=== PATIENT | male | born 1960 | race Caucasian/White ===

== ENCOUNTER 2018-12-30 20:47 | Emergency (ER) | payer SELFPAY ==
[~2018-12-30] VITALS: Ht 172.7 cm; Wt 78.0 kg
[~2018-12-30 20:47] MED LIST: TRAM-385
[2018-12-30 21:00] VITALS: BP 134/84
[2018-12-30] MEDS ORDERED: TAMS-11 PO (21:31)
[2018-12-30] MEDS ORDERED: KETOROLAC 30 MG/1 ML ONE (22:09)
--- NOTE | 2018-12-30 22:12 | NUR ---
PT MEDICATED FOR PAIN PER MAR. AWAITING D/C INSTRUCTIONS AT THIS TIME.
--- NOTE | 2018-12-30 22:13 | NUR ---
PT D/C WITH D/C SUMMARY. ALL QUESTIONS ANSWERED. PT AMBULATES TO REGISTRATION DESK WITH STEADY GAIT FOR D/C HOME. PT DENIES ANY OTHER NEEDS PERTAINING TO THIS VISIT.
[2018-12-30] MEDS ORDERED: KETOROLAC 30 MG/1 ML IM ONE (22:30)
== END 2018-12-30 22:15 | disposition home or self-care (01) ==
LOC: ED 22:09
DX: M25.571 Pain in right ankle and joints of right foot (principal); M79.661 Pain in right lower leg; H93.11 Tinnitus, right ear
CPT/HCPCS: 70450; 99284

== ENCOUNTER 2019-03-10 07:55 | Inpatient (IN) | payer SELFPAY ==
[~2019-03-10] VITALS: Ht 172.7 cm; Wt 74.3 kg
[~2019-03-10 07:55] MED LIST changes: +TAMS-11 PO
--- NOTE | 2019-03-10 08:00 | NUR ---
PT ARRIVED AMBULATORY TO ROOM 4 WITH MOM. PT DRESSED IN GOWN AND RESTING COMFORTABLY ON GURNEY. PT AAO X 4, VSS, CALL LIGHT WITHIN REACH. PT C/O NASUEA, VOMITTING, DIARRHEA, HEADACHE, BODY ACHES, FEVER, CHILLS, SOB, DIZZINESS.
--- NOTE | 2019-03-10 08:18 | NUR ---
[employer] HELPER AT BEDSIDE FOR EXAM.
[2019-03-10] MEDS ORDERED: ACETAMINOPHEN 500 MG TABLET PO ONE (08:30)
[2019-03-10] MEDS ORDERED: ACETAMINOPHEN 325 MG TABLET PO ONE (08:30)
[2019-03-10] MEDS ORDERED: SODIUM CHLORIDE 0.9% 1,000ML IVBOLUS ONE ×2 (08:30→16:00)
[2019-03-10] MEDS ORDERED: ACETAMINOPHEN 500 MG TABLET ONE (08:43)
[2019-03-10 09:08] LABS: MEAN CORPUSCULAR HEMOGLOBIN 28.5 pg (27.5-34.5); MEAN CORPUSCULAR VOLUME 86.4 fL (81-97); MEAN PLATELET VOLUME 8.3 fL (7.4-10.4); PLATELET COUNT 146 x10^3/uL (130-400); RED CELL DISTRIBUTION WIDTH 14.2 % (9.4-14.8)
[2019-03-10 09:19] LABS: ALBUMIN 2.7 g/dL (3.4-5.0); ANION GAP 10 mmol/L (5-15); CHLORIDE 104 mmol/L (98-107); CREATININE 1.19 mg/dL (0.7-1.3)
--- NOTE | 2019-03-10 09:21 | NUR ---
PT RESTING COMFORTABLY ON GURNEY. 1 L NC AND SATTING 98%, VSS, BOLUS INFUSING, PT AAO X 4, CALL LIGHT WITHIN REACH, MOM AT BEDSIDE.
[2019-03-10 09:22] LABS: TROPONIN I < 0.015 ng/mL (0.000-0.045)
[2019-03-10 09:25] LABS: RAPID INFLUENZA A Negative (Negative); RAPID INFLUENZA B Negative (Negative)
[2019-03-10 09:30] LABS: MD YES
[2019-03-10] MEDS ORDERED: CEFTRIAXONE PMX 1GM/50ML 50 ML IV ONE ×2 (09:30→14:30)
[2019-03-10] MEDS ORDERED: AZITHROMYCIN 500 MG in SODIUM CHLORIDE 0.9% 250 ML IV ONE (09:30)
[2019-03-10 09:34] LABS: <PLATELET ESTIMATE> ADEQUATE; <PLT MORPHOLOGY> NORMAL PLT MORPH; <RBC MORPHOLOGY> NORMAL; BAND#(MANUAL) 3.56 x10^3/uL; BANDS%(MANUAL) 28 % (0-7); LYMPH#(MANUAL) 0.38 x10^3/uL (1-3.4); LYMPHS% (MANUAL) 3 % (22-44); METAMYELOCYTES# (MANUAL) 0.13 x10^3/uL (0-0); METAMYELOCYTES% (MANUAL) 1 % (0-1); MONOS#(MANUAL) 0.13 x10^3/uL (0.3-2.7); MONOS% (MANUAL) 1 % (2-9); SEG#(MANUAL) 8.51 x10^3/uL (1.8-6.8); SEGS% (MANUAL) 67 % (42-75)
[2019-03-10 09:35] LABS: PMNS WITH VACUOLES 1+
[2019-03-10] MEDS ORDERED: CEFTRIAXONE PMX 1GM/50ML 50 ML ONE (10:01)
--- NOTE | 2019-03-10 10:14 | NUR ---
MD AWARE OF PT'S SEPSIS SCORE, BLOOD CX ORDERED AND DRAWN, IV ABX ADMINISTERED AFTER BC X 2. PT'S TEMP 98.3, VSS.
--- NOTE | 2019-03-10 11:06 | NUR ---
PT RESTING IN GURNEY, MOM AT BEDSIDE, VSS, ADMIT ROOM BEING CLEANED.
--- NOTE | 2019-03-10 12:36 | NUR ---
PT SLEEPING. FALL PRECUATIONS IN PLACE.
--- NOTE | 2019-03-10 13:25 | NUR ---
BREAK RN: PT STATED THAT HE WANTED TO LEAVE AMA, WHEN RN WAS ABLE TO COME TO ROOM TO ASK PT WHAT WAS WRONG, PT STATED THAT HE WAS HUNGRY. MEAL TRAY ORDERED, ALL MONITORS WHICH PT HAD REMOVED RE-ATTACHED, PT REPORTS NO OTHER NEEDS AT THIS TIME, (PILLOW, BLANKET & HOSPITAL BED OFFERED, PT DECLINED ALL). PT IN BED, NAD, MEAL TRAY ORDERED, CALL LIGHT IN REACH, WCTM.
--- NOTE | 2019-03-10 14:23 | NUR ---
PT TO TRANSFER WITH TECH TO ROOM 537. RPEORT GIVEN TO HUGH VIEYRA.
[2019-03-10] MEDS ORDERED: DOCUSATE 100 MG CAPSULE PO PRN (14:30)
[2019-03-10] MEDS ORDERED: hydrALAzine 20 MG/ML, 1ML IVPush PRN (14:30)
[2019-03-10] MEDS ORDERED: ONDANSETRON 2MG/ML, 2ML IVPush PRN (14:30)
[2019-03-10] MEDS ORDERED: ONDANSETRON ODT 4 MG PO PRN (14:30)
[2019-03-10] MEDS ORDERED: HEPARIN 5,000 UNITS/ML, 1ML SQ SCH (14:30)
[2019-03-10] MEDS ORDERED: morphine SULFATE 10 MG/ML, 1ML IVPush PRN (14:30)
[2019-03-10] MEDS ORDERED: BISACODYL 10 MG SUPP PR PRN (14:30)
[2019-03-10] MEDS ORDERED: OXYcodone IR 5MG TABLET PO PRN (14:30)
[2019-03-10] MEDS ORDERED: POLYETHYLENE GLYCOL 17 GM PACKET PO PRN (14:30)
[2019-03-10] MEDS ORDERED: ACETAMINOPHEN 325 MG TABLET PO PRN (14:30)
[2019-03-10] MEDS ORDERED: PROMETHAZINE 25 MG/ML, 1ML IM PRN (14:30)
[2019-03-10 14:33] LABS: MEAN CORPUSCULAR HGB CONC 32.8 g/dL (33.2-36.2); MEAN CORPUSCULAR VOLUME 88.5 fL (81-97); MEAN PLATELET VOLUME 8.4 fL (7.4-10.4); PLATELET COUNT 140 x10^3/uL (130-400); RED BLOOD COUNT 4.52 x10^6/uL (4.38-5.82); RED CELL DISTRIBUTION WIDTH 14.2 % (9.4-14.8)
[2019-03-10 14:49] LABS: FREE T4 (FREE THYROXINE) 1.3 ng/dL (0.76-1.46); THYROID STIMULATING HORMONE 2.62 mIU/L (0.358-3.740)
[2019-03-10 14:52] VITALS: BP 104/70
[2019-03-10 15:07] LABS: MD YES
[2019-03-10 15:11] LABS: BAND#(MANUAL) 2.86 x10^3/uL; BANDS%(MANUAL) 27 % (0-7); BASOS#(MANUAL) 0.11 x10^3/uL (0-0.1); BASOS% (MANUAL) 1 % (0-1); LYMPH#(MANUAL) 0.21 x10^3/uL (1-3.4); LYMPHS% (MANUAL) 2 % (22-44); MONOS#(MANUAL) 0.32 x10^3/uL (0.3-2.7); MONOS% (MANUAL) 3 % (2-9); SEGS% (MANUAL) 67 % (42-75)
[2019-03-10 15:12] LABS: <RBC MORPHOLOGY> NORMAL; TOXIC GRAN 1+
[2019-03-10 15:14] LABS: <PLATELET ESTIMATE> ADEQUATE; <PLT MORPHOLOGY> NORMAL PLT MORPH; PMNS WITH VACUOLES 1+
[2019-03-10 15:44] LABS: HEMOGLOBIN A1C 5.6 % (4.2-6.3)
[2019-03-10] MEDS ORDERED: SODIUM CHLORIDE 0.9% 1,000 ML IV SCH (16:00)
[2019-03-10 16:25] LABS: MICROSCOPIC INDICATED
[2019-03-10 16:57] LABS: CULTURE INDICATED? NO
[2019-03-10 19:18] VITALS: BP 111/72
[2019-03-11] MEDS ORDERED: TAMSULOSIN 0.4 MG CAP.ER.24H PO SCH (09:00)
[2019-03-11] MEDS ORDERED: AZITHROMYCIN 500 MG in SODIUM CHLORIDE 0.9% 250 ML IV SCH (09:00)
[2019-03-11] MEDS ORDERED: CEFTRIAXONE PMX 2GM/50ML 50 ML IV SCH (09:00)
== END 2019-03-10 22:05 | disposition left against medical advice (07) | DRG 871 ==
LOC: ED 09:19 → EDIP 10:59 → 3NE 14:42
PROVIDERS: ADMIT Internal Medicine; ATTEND Internal Medicine
PROC: 0T9B70Z Drainage of Bladder with Drainage Device, Via Natural or Artificial Opening (ICD-10-PCS; principal; 2019-03-10)
DX: A41.9 Sepsis, unspecified organism (principal); J18.1 Lobar pneumonia, unspecified organism; E44.0 Moderate protein-calorie malnutrition; Z53.21 Procedure and treatment not carried out due to patient leaving prior to being seen by health care provider; N40.0 Benign prostatic hyperplasia without lower urinary tract symptoms; R09.02 Hypoxemia; Z68.24 Body mass index [BMI] 24.0-24.9, adult; Z87.891 Personal history of nicotine dependence
CPT/HCPCS: 36415; 71045; 80048; 81001; 82040; 83036; 83605; 83735; 83880; 84439; 84443; 84484; 85025; 87040; 87070; 87077; 87186; 87205; 87400; 93005; 96365; 96368; G0378; J0456; J0696; J1644; J7030; J7050